=== PATIENT | female | born 1985 | race Caucasian/White ===

== ENCOUNTER 2016-09-13 14:52 | Inpatient (IN) | payer BC ==
[~2016-09-13] VITALS: Ht 160 cm; Wt 79.5 kg
[~2016-09-13 14:52] MED LIST: MOTRIN 600600 MG/TAB PO; PERCOCET 325 MG1 TA2 PO; PRENATAL1 TA1 PO; SENOKOT S 50 MG1 TAB PO
[2016-10-12] VITALS (18 sets, daily range): BP systolic 112–159; BP diastolic 66–90; PULSE 68–112; TEMP 97.8–98.6
[2016-10-12 06:11] LABS: BASO # 0.1 (0.0-0.2); BASO % 0.6 % (0.0-2.0); EOS # 0.1 (0.0-0.7); GRAN # 4.9 (1.4-6.5); GRAN % 62.5 % (42.2-75.2); HEMATOCRIT 31.3 % (37.0-47.0); HEMOGLOBIN 11.1 g/dl (12.5-16.0); LYMPH # 2.1 (1.2-3.4); LYMPH % 27.2 % (20.0-51.0); MEAN CELL VOLUME 87 fl (80.0-100.0); MEAN CORPUSCULAR HEMOGLOBIN 31 pg (27.0-31.0); MEAN CORPUSCULAR HGB CONC 36 g/dl (33.0-37.0); MEAN PLATELET VOLUME 9.7 fl (7.4-10.4); MONO # 0.6 (0.1-0.6); MONO % 7.2 % (1.7-9.3); PLATELET COUNT 209 K/mm3 (130-400); RED BLOOD COUNT 3.62 M/mm3 (4.10-5.30); REDCELL DISTRIBUTION WIDTH-CV 14.1 % (11.5-14.5); WHITE BLOOD COUNT 7.8 K/mm3 (4.8-10.8)
[2016-10-12] MEDS ORDERED: NATURAL IRON65 MG PO (06:36)
[2016-10-13 03:00] VITALS: BP 119/63; PULSE 74; TEMP 98.3
[2016-10-13 07:35] VITALS: BP 110/68; PULSE 71; TEMP 98.1
[2016-10-13] MEDS ORDERED: PERCOCET 325 MG1 TA2 PO (08:41)
[2016-10-13] MEDS ORDERED: IBU600 MG PO (08:41)
[2016-10-13 11:05] VITALS: BP 100/69; PULSE 74; TEMP 97.8
[2016-10-13 16:32] VITALS: BP 124/75; PULSE 86; TEMP 97.6
[2016-10-13 19:15] VITALS: BP 127/70; PULSE 74
[2016-10-14 09:24] VITALS: BP 141/81; PULSE 80; TEMP 98.2
[2016-10-14] MEDS ORDERED: KLONOPIN 0.5MG0.5 MG PO (18:18)
[2016-10-14 22:00] VITALS: BP 130/67; PULSE 77; TEMP 97.9
[2016-10-15 08:03] VITALS: BP 141/90; PULSE 95; TEMP 97.5
== END 2016-10-15 12:05 | disposition home or self-care (01) | DRG 766 ==
LOC: OB 10-12 05:35 → EDSTATUS 10-18 06:42 → LDRO 10-18 14:51
PROVIDERS: Obstetrics & Gynecology
PROC: 10D00Z1 Extraction of Products of Conception, Low, Open Approach (ICD-10-PCS; principal; 2016-10-12)
DX: O34.211 Maternal care for low transverse scar from previous cesarean delivery (principal); N85.8 Other specified noninflammatory disorders of uterus; Z3A.39 39 weeks gestation of pregnancy; Z37.0 Single live birth
CPT/HCPCS: J0690; J1885; J2175; J2210; J2270; J2370; J2405; J2550; J2590; J7120

== ENCOUNTER 2016-10-19 18:11 | Observation (INO) | payer BC ==
[~2016-10-19] VITALS: Ht 160 cm; Wt 74.1 kg
[2016-10-19] VITALS (7 sets, daily range): BP systolic 121–135; BP diastolic 71–95; PULSE 111–123; TEMP 98.6–98.8
[~2016-10-19 18:11] MED LIST changes: +IBU600 MG PO; +KLONOPIN 0.5MG0.5 MG PO; +NATURAL IRON65 MG PO
[2016-10-19 19:02] LABS: ADJUSTED CALCIUM 8.9 mg/dL (8.4-10.2); ALBUMIN 2.8 gm/dL (3.5-5.0); BILIRUBIN,TOTAL 0.5 mg/dL (0.0-1.0); CALCIUM 7.9 mg/dL (8.4-10.2); CREATININE, serum 0.71 mg/dL (0.52-1.25); TOTAL PROTEIN 5.3 gm/dL (6.4-8.2)
[2016-10-19 19:10] LABS: MEAN CELL VOLUME 91 fl (80.0-100.0); MEAN CORPUSCULAR HGB CONC 32 g/dl (33.0-37.0); MEAN PLATELET VOLUME 8.8 fl (7.4-10.4); PLATELET COUNT 269 K/mm3 (130-400); RED BLOOD COUNT 2.38 M/mm3 (4.10-5.30); REDCELL DISTRIBUTION WIDTH-CV 14.1 % (11.5-14.5)
[2016-10-19 19:13] LABS: ADD PATHOLOGY DIFF REVIEW NO; HEMATOCRIT 21.6 % (37.0-47.0); MEAN CORPUSCULAR HEMOGLOBIN 29 pg (27.0-31.0)
[2016-10-19 19:24] LABS: BAND 1 % (0-10); BASOPHIL 1 % (0-2); EOSINOPHIL 2 % (0-4); NEUTROPHILS 81 % (42.0-75.2); TOTAL CELLS COUNTED 100
[2016-10-19 19:26] LABS: ANISOCYTOSIS 1+; HYPOCHROMIA 1+; MICROCYTOSIS 1+; POLYCHROMASIA 2+; ROULEAUX 1+
[2016-10-19] MEDS ORDERED: KLONOPIN 0.5MG0.5 MG PO (20:28)
[2016-10-19] MEDS ORDERED: ROXICODONE 55 MG/TAB PO (20:29)
[2016-10-19] MEDS ORDERED: ADALAT CC30 MG PO (20:30)
[2016-10-20] VITALS (11 sets, daily range): BP systolic 113–135; BP diastolic 67–103; PULSE 73–123; TEMP 97.9–100.7
[2016-10-20] MEDS ORDERED: PERCOCET 325 MG1 TA2 PO (09:03)
[2016-10-20] MEDS ORDERED: AMOXICILLIN 8751 TAB PO (09:04)
[2016-10-20] MEDS ORDERED: METHERGINE0.2 MG/TAB PO (09:06)
[2016-10-20 09:45] LABS: MEAN CELL VOLUME 87 fl (80.0-100.0); MEAN CORPUSCULAR HGB CONC 32 g/dl (33.0-37.0); MEAN PLATELET VOLUME 8.5 fl (7.4-10.4); PLATELET COUNT 280 K/mm3 (130-400); RED BLOOD COUNT 3.13 M/mm3 (4.10-5.30); REDCELL DISTRIBUTION WIDTH-CV 15.4 % (11.5-14.5); WHITE BLOOD COUNT 10.4 K/mm3 (4.8-10.8)
[2016-10-20 10:20] LABS: ADD PATHOLOGY DIFF REVIEW NO; HEMATOCRIT 27.3 % (37.0-47.0); HEMOGLOBIN 8.8 g/dl (12.5-16.0); MEAN CORPUSCULAR HEMOGLOBIN 28 pg (27.0-31.0)
[2016-10-20 11:59] LABS: BAND 6 % (0-10); EOSINOPHIL 1 % (0-4); NEUTROPHILS 65 % (42.0-75.2); TOTAL CELLS COUNTED 100
[2016-10-20 12:00] LABS: ANISOCYTOSIS 1+; HYPOCHROMIA 1+; PLATELET ESTIMATE NORMAL (NORMAL); POLYCHROMASIA 1+
== END 2016-10-20 11:30 | disposition home or self-care (01) ==
LOC: COL.ER 18:11 → EDBD 19:25 → OB 19:25
PROVIDERS: Family Medicine; Obstetrics & Gynecology
DX: O72.2 Delayed and secondary postpartum hemorrhage (principal); O90.81 Anemia of the puerperium; D62 Acute posthemorrhagic anemia; O13.5 Gestational [pregnancy-induced] hypertension without significant proteinuria, complicating the puerperium; O90.89 Other complications of the puerperium, not elsewhere classified; E87.6 Hypokalemia
CPT/HCPCS: G0378; J2270; J7030; P9016